=== PATIENT | female | born 1940 | race Caucasian/White ===

== ENCOUNTER 2017-05-19 10:54 | Outpatient (CLI) | payer OTHER | END 2017-05-19 15:37 | disposition home or self-care (01) | LOC: LAB 10:54 | DX: E11.65 Type 2 diabetes mellitus with hyperglycemia (principal); E03.8 Other specified hypothyroidism; E78.2 Mixed hyperlipidemia; D64.89 Other specified anemias ==

== ENCOUNTER 2017-09-15 09:12 | Outpatient (CLI) | payer OTHER | END 2017-09-15 09:26 | disposition home or self-care (01) | LOC: LAB 09:12 | DX: E11.65 Type 2 diabetes mellitus with hyperglycemia (principal); E11.69 Type 2 diabetes mellitus with other specified complication; E66.09 Other obesity due to excess calories; I10 Essential (primary) hypertension; E03.8 Other specified hypothyroidism ==

== ENCOUNTER 2017-11-03 17:45 | Inpatient (IN) | payer OTHER ==
[~2017-11-03] VITALS: Ht 165.1 cm; Wt 97.5 kg
[2017-11-03] MEDS ORDERED: LOSARTAN-HCTZ1 EAC2 (18:16)
[2017-11-03] MEDS ORDERED: FORTAMET500 MG (18:17)
== END 2017-11-10 11:07 | disposition designated cancer center or children's hospital (05) | DRG 371 ==
LOC: ER 17:45 → MEDJ 11-04 15:23 → MEDI 11-04 15:23 → MEDJ 11-04 15:56
PROC: 4A12X4Z Monitoring of Cardiac Electrical Activity, External Approach (ICD-10-PCS; 2017-11-06)
PROC: B246ZZZ Ultrasonography of Right and Left Heart (ICD-10-PCS; principal; 2017-11-08)
DX: A05.8 Other specified bacterial foodborne intoxications (principal); N17.0 Acute kidney failure with tubular necrosis; I45.3 Trifascicular block; I49.5 Sick sinus syndrome; E86.0 Dehydration; I95.89 Other hypotension; E66.8 Other obesity; I10 Essential (primary) hypertension; E11.9 Type 2 diabetes mellitus without complications; R55 Syncope and collapse; E03.8 Other specified hypothyroidism

== ENCOUNTER 2018-01-05 10:35 | Outpatient (CLI) | payer OTHER ==
[~2018-01-05 10:35] MED LIST: FORTAMET500 MG; LOSARTAN-HCTZ1 EAC2
== END 2018-01-05 10:44 | disposition home or self-care (01) ==
LOC: LAB 10:35
DX: M81.0 Age-related osteoporosis without current pathological fracture (principal); E66.09 Other obesity due to excess calories; E11.65 Type 2 diabetes mellitus with hyperglycemia; E78.2 Mixed hyperlipidemia; I10 Essential (primary) hypertension

== ENCOUNTER 2018-03-02 10:50 | Outpatient (CLI) | payer OTHER | END 2018-03-02 11:37 | disposition home or self-care (01) | LOC: LAB 10:50 | DX: E66.09 Other obesity due to excess calories (principal); E78.2 Mixed hyperlipidemia; E11.65 Type 2 diabetes mellitus with hyperglycemia; I10 Essential (primary) hypertension ==

== ENCOUNTER 2018-07-21 10:20 | Outpatient (CLI) | payer OTHER | END 2018-07-21 13:49 | disposition home or self-care (01) | LOC: LAB 10:20 | DX: E03.8 Other specified hypothyroidism (principal); E11.65 Type 2 diabetes mellitus with hyperglycemia; E11.69 Type 2 diabetes mellitus with other specified complication; E78.2 Mixed hyperlipidemia ==

== ENCOUNTER → 2019-02-28 10:58 | Outpatient (CLI) | payer OTHER | END | disposition home or self-care (01) | LOC: LAB 10:58 | DX: I11.9 Hypertensive heart disease without heart failure (principal); E78.00 Pure hypercholesterolemia, unspecified; E11.9 Type 2 diabetes mellitus without complications; E55.9 Vitamin D deficiency, unspecified ==

== ENCOUNTER → 2019-06-21 08:48 | Outpatient (CLI) | payer OTHER | END | disposition home or self-care (01) | LOC: LAB 08:48 | DX: E04.2 Nontoxic multinodular goiter (principal); E03.8 Other specified hypothyroidism; E11.65 Type 2 diabetes mellitus with hyperglycemia; I10 Essential (primary) hypertension; E66.09 Other obesity due to excess calories ==

== ENCOUNTER 2019-12-06 09:24 | Outpatient (CLI) | payer OTHER | END 2019-12-06 09:30 | disposition home or self-care (01) | LOC: LAB 09:24 | DX: E03.8 Other specified hypothyroidism (principal); E11.65 Type 2 diabetes mellitus with hyperglycemia; E66.09 Other obesity due to excess calories; I10 Essential (primary) hypertension; E78.2 Mixed hyperlipidemia ==

== ENCOUNTER 2020-05-06 10:13 | Outpatient (CLI) | payer OTHER | END 2020-05-06 10:15 | disposition home or self-care (01) | LOC: LAB 10:13 | PROVIDERS: ATTEND Internal Medicine Endocrinology, Diabetes & Metabolism | DX: E78.2 Mixed hyperlipidemia (principal); I10 Essential (primary) hypertension; E66.09 Other obesity due to excess calories; E11.65 Type 2 diabetes mellitus with hyperglycemia; E03.8 Other specified hypothyroidism ==

== ENCOUNTER 2020-09-28 09:17 | Outpatient (CLI) | payer OTHER | END 2020-09-28 09:22 | disposition home or self-care (01) | LOC: LAB 09:17 | PROVIDERS: ATTEND Internal Medicine Cardiovascular Disease | DX: E03.8 Other specified hypothyroidism (principal); I11.9 Hypertensive heart disease without heart failure; E11.9 Type 2 diabetes mellitus without complications; E78.2 Mixed hyperlipidemia ==

== ENCOUNTER 2021-01-17 09:41 | Outpatient (CLI) | payer OTHER | END 2021-01-17 09:43 | disposition home or self-care (01) | LOC: LAB 09:41 | PROVIDERS: ATTEND Internal Medicine Endocrinology, Diabetes & Metabolism | DX: M85.89 Other specified disorders of bone density and structure, multiple sites (principal); E66.09 Other obesity due to excess calories; R94.30 Abnormal result of cardiovascular function study, unspecified; E78.2 Mixed hyperlipidemia; E11.65 Type 2 diabetes mellitus with hyperglycemia ==

== ENCOUNTER 2021-06-30 10:26 | Outpatient (CLI) | payer OTHER | END 2021-06-30 10:30 | disposition home or self-care (01) | LOC: LAB 10:26 | PROVIDERS: ATTEND Internal Medicine Endocrinology, Diabetes & Metabolism | DX: D64.89 Other specified anemias (principal); E03.8 Other specified hypothyroidism; E78.2 Mixed hyperlipidemia; E11.65 Type 2 diabetes mellitus with hyperglycemia; R80.9 Proteinuria, unspecified; E11.22 Type 2 diabetes mellitus with diabetic chronic kidney disease; R94.5 Abnormal results of liver function studies ==

== ENCOUNTER 2022-06-02 09:25 | Outpatient (CLI) | payer OTHER | END 2022-06-02 09:36 | disposition home or self-care (01) | LOC: LAB 09:25 | PROVIDERS: ATTEND Internal Medicine Endocrinology, Diabetes & Metabolism | DX: E03.8 Other specified hypothyroidism (principal); E78.2 Mixed hyperlipidemia; E55.9 Vitamin D deficiency, unspecified; E11.65 Type 2 diabetes mellitus with hyperglycemia ==

== ENCOUNTER → 2022-11-17 09:44 | Outpatient (CLI) | payer OTHER ==
[2022-11-17 10:25] LABS: HEMATOCRIT 33.8 % (36.0-45.00); HEMOGLOBIN 11.1 g/dL (12.0-15.00); MEAN CORPUSCULAR HEMOGLOBIN 28.9 pg (27.00-32.0); MEAN CORPUSCULAR HGB CONC 32.8 g/dl (32.0-36.0); PLATELET COUNT 316 K/uL (150-450); RED BLOOD COUNT 3.84 M/uL (4.00-6.00); RED CELL DISTRIBUTION WIDTH 14.4 % (11.5-14.5)
[2022-11-17 11:06] LABS: ALBUMIN 3.3 gm/dL (3.4-5.0); BILIRUBIN TOTAL 0.47 mg/dL (0.3-1.2); CALCIUM 8.9 mg/dL (8.5-10.1); CREATININE SERUM 1.04 mg/dL (0.55-1.02); FREE TRIODOTIRONINE 1.92 pg/ml (2.18-3.98); GFR 51.12; GLOBULINA 3.4 G/DL (2.4-3.5); MAGNESIUM 1.6 mg/dL (1.8-2.4); PHOSPHOROUS 3.3 mg/dL (2.5-4.9); POTASSIUM 3.88 mEq/L (3.5-5.1); TOTAL PROTEIN 6.7 gm/dL (6.4-8.2); TSH 1.32 uIU/mL (0.358-3.74)
[2022-11-17 11:07] LABS: T4 FREE 1.57 NG/ML (0.76-1.46)
[2022-11-17 11:21] LABS: URINE APPEARANCE Cloudy; URINE BILIRRUBIN Negative (NEGATIVE); URINE BLOOD NHT; URINE COLOR Yellow; URINE GLUCOSE Negative (NEGATIVE); URINE LEUKOCYTE Large; URINE NITRATE Negative; URINE PROTEIN Negative (NEGATIVE); URINE UROBILINOGEN 0.2 E.U./dl
[2022-11-17 11:26] LABS: URINE BACTERIA 2432.8 uL (0.0-1933); URINE EPITHELIAL CELLS 66.1 uL (0.0-38.8); URINE WBC 1080.3 uL (0.0-23.2)
[2022-11-17 11:32] LABS: FOLIC ACID > 20.00 ng/ml (4.78-20); VITAMIN D3 25 HYDROXY 34.37 ng/ml (30-120)
[2022-11-17 11:47] LABS: URINE RBC 1.8 uL (0.0-20.8)
== END | disposition home or self-care (01) ==
LOC: LAB 09:44
PROVIDERS: ATTEND Specialist
DX: N25.81 Secondary hyperparathyroidism of renal origin (principal); E03.8 Other specified hypothyroidism; E11.69 Type 2 diabetes mellitus with other specified complication; Z13.220 Encounter for screening for lipoid disorders; D64.89 Other specified anemias; N39.9 Disorder of urinary system, unspecified; E11.21 Type 2 diabetes mellitus with diabetic nephropathy; D64.9 Anemia, unspecified; E78.2 Mixed hyperlipidemia; E55.9 Vitamin D deficiency, unspecified; M81.0 Age-related osteoporosis without current pathological fracture; M85.89 Other specified disorders of bone density and structure, multiple sites; E11.65 Type 2 diabetes mellitus with hyperglycemia

== ENCOUNTER → 2023-04-15 09:56 | Outpatient (CLI) | payer OTHER ==
[2023-04-15 10:48] LABS: URINE APPEARANCE Clear; URINE BILIRRUBIN Negative (NEGATIVE); URINE BLOOD Negative; URINE COLOR Yellow; URINE GLUCOSE Negative (NEGATIVE); URINE LEUKOCYTE Small; URINE NITRATE Negative; URINE PROTEIN Negative (NEGATIVE); URINE UROBILINOGEN 0.2 E.U./dl
[2023-04-15 10:50] LABS: URINE BACTERIA 132.2 uL (0.0-1933); URINE EPITHELIAL CELLS 5.8 uL (0.0-38.8); URINE WBC 31.9 uL (0.0-23.2)
[2023-04-15 10:54] LABS: HEMATOCRIT 34.7 % (36.0-45.00); HEMOGLOBIN 11.6 g/dL (12.0-15.00); MEAN CELL VOLUME 88.1 fL (80.00-100.00); MEAN CORPUSCULAR HEMOGLOBIN 29.5 pg (27.00-32.0); MEAN CORPUSCULAR HGB CONC 33.4 g/dl (32.0-36.0); PLATELET COUNT 348 K/uL (150-450); RED BLOOD COUNT 3.94 M/uL (4.00-6.00); RED CELL DISTRIBUTION WIDTH 14.9 % (11.5-14.5)
[2023-04-15 11:04] LABS: URINE RBC 0.8 uL (0.0-20.8)
[2023-04-15 11:20] LABS: TSH 1.41 uIU/mL (0.358-3.74)
[2023-04-15 11:32] LABS: ALBUMIN 3.5 gm/dL (3.4-5.0); BILIRUBIN TOTAL 0.69 mg/dL (0.3-1.2); CALCIUM 9.4 mg/dL (8.5-10.1); CHOL HDL RATIO 1.9 (0-5.0); CREATININE SERUM 0.89 mg/dL (0.55-1.02); FREE TRIODOTIRONINE 2.15 pg/ml (2.18-3.98); GFR 61.02; GLOBULINA 3.6 G/DL (2.4-3.5); POTASSIUM 4.07 mEq/L (3.5-5.1); T4 FREE 1.41 NG/ML (0.76-1.46); TOTAL PROTEIN 7.1 gm/dL (6.4-8.2)
[2023-04-15 11:34] LABS: C-REACTIVE PROTEIN 1.35 MG/DL (0.00-0.29)
== END | disposition home or self-care (01) ==
LOC: LAB 09:56
PROVIDERS: ATTEND Specialist
DX: N39.9 Disorder of urinary system, unspecified (principal); E03.8 Other specified hypothyroidism; N25.81 Secondary hyperparathyroidism of renal origin; R19.5 Other fecal abnormalities; E11.69 Type 2 diabetes mellitus with other specified complication; E11.21 Type 2 diabetes mellitus with diabetic nephropathy; D64.89 Other specified anemias; M00.08 Staphylococcal arthritis, vertebrae; N39.0 Urinary tract infection, site not specified; Z13.220 Encounter for screening for lipoid disorders; I11.9 Hypertensive heart disease without heart failure; E78.2 Mixed hyperlipidemia; E55.9 Vitamin D deficiency, unspecified

== ENCOUNTER 2023-11-05 09:41 | Outpatient (CLI) | payer OTHER ==
[2023-11-05 10:20] LABS: HEMATOCRIT 34.7 % (36.0-45.00); HEMOGLOBIN 11.7 g/dL (12.0-15.00); MEAN CELL VOLUME 88.1 fL (80.00-100.00); MEAN CORPUSCULAR HEMOGLOBIN 29.7 pg (27.00-32.0); MEAN CORPUSCULAR HGB CONC 33.6 g/dl (32.0-36.0); PLATELET COUNT 321 K/uL (150-450); RED BLOOD COUNT 3.93 M/uL (4.00-6.00); RED CELL DISTRIBUTION WIDTH 14.7 % (11.5-14.5)
[2023-11-05 11:07] LABS: CALCIUM 8.9 mg/dL (8.5-10.1); CREATININE SERUM 0.99 mg/dL (0.55-1.02); GFR 53.97; POTASSIUM 3.95 mEq/L (3.5-5.1); T4 FREE 1.39 NG/ML (0.76-1.46); TSH 1.55 uIU/mL (0.358-3.74)
== END 2023-11-05 09:42 | disposition home or self-care (01) ==
LOC: LAB 09:41
PROVIDERS: ATTEND Internal Medicine Endocrinology, Diabetes & Metabolism
DX: E11.65 Type 2 diabetes mellitus with hyperglycemia (principal); E03.8 Other specified hypothyroidism; E78.2 Mixed hyperlipidemia; E55.9 Vitamin D deficiency, unspecified; M81.0 Age-related osteoporosis without current pathological fracture; D64.9 Anemia, unspecified

== ENCOUNTER 2023-11-23 12:42 | Outpatient (CLI) | payer OTHER | END 2023-11-23 12:45 | disposition home or self-care (01) | LOC: NUCLEAR 12:42 | PROVIDERS: ATTEND Internal Medicine Endocrinology, Diabetes & Metabolism | DX: M85.89 Other specified disorders of bone density and structure, multiple sites (principal); Z13.820 Encounter for screening for osteoporosis; M81.0 Age-related osteoporosis without current pathological fracture ==

== ENCOUNTER 2024-04-05 11:06 | Outpatient (CLI) | payer OTHER ==
[2024-04-05 11:58] LABS: URINE APPEARANCE Clear; URINE BILIRRUBIN Negative (NEGATIVE); URINE BLOOD Negative; URINE COLOR Yellow; URINE GLUCOSE Negative (NEGATIVE); URINE KETONE Negative (NEGATIVE); URINE LEUKOCYTE Moderate; URINE NITRATE Negative; URINE PROTEIN Negative (NEGATIVE); URINE UROBILINOGEN 0.2 E.U./dl
[2024-04-05 11:58] LABS: HEMATOCRIT 36.2 % (36.0-45.00); HEMOGLOBIN 11.9 g/dL (12.0-15.00); MEAN CELL VOLUME 88.6 fL (80.00-100.00); MEAN CORPUSCULAR HEMOGLOBIN 29.2 pg (27.00-32.0); PLATELET COUNT 332 K/uL (150-450); RED BLOOD COUNT 4.08 M/uL (4.00-6.00); RED CELL DISTRIBUTION WIDTH 14.4 % (11.5-14.5)
[2024-04-05 12:01] LABS: URINE BACTERIA 92.9 uL (0.0-1933); URINE EPITHELIAL CELLS 18.9 uL (0.0-38.8); URINE RBC 2.6 uL (0.0-20.8); URINE WBC 184.9 uL (0.0-23.2)
[2024-04-05 12:12] LABS: URINE CAST 1.17 uL (0.0-1.40)
[2024-04-05 13:12] LABS: ALBUMIN 3.5 gm/dL (3.4-5.0); BILIRUBIN TOTAL 0.55 mg/dL (0.3-1.2); CREATININE SERUM 0.95 mg/dL (0.55-1.02); GFR 56.46; GLOBULINA 3.7 G/DL (2.4-3.5); POTASSIUM 3.93 mEq/L (3.5-5.1); T4 FREE 1.39 NG/ML (0.76-1.46); TOTAL PROTEIN 7.2 gm/dL (6.4-8.2); TSH 1.32 uIU/mL (0.358-3.74)
[2024-04-05 13:53] LABS: FOLIC ACID > 20.00 ng/ml (4.78-20); VITAMIN D3 25 HYDROXY 42.85 ng/ml (30-120)
== END 2024-04-05 11:08 | disposition home or self-care (01) ==
LOC: LAB 11:06
PROVIDERS: ATTEND Internal Medicine Endocrinology, Diabetes & Metabolism
DX: D64.9 Anemia, unspecified (principal); E03.8 Other specified hypothyroidism; E78.2 Mixed hyperlipidemia; E55.9 Vitamin D deficiency, unspecified; E11.65 Type 2 diabetes mellitus with hyperglycemia; R94.5 Abnormal results of liver function studies; E11.9 Type 2 diabetes mellitus without complications

== ENCOUNTER 2024-08-31 10:44 | Outpatient (CLI) | payer OTHER ==
[2024-08-31 12:03] LABS: URINE APPEARANCE Clear; URINE BILIRRUBIN Negative (NEGATIVE); URINE BLOOD Negative; URINE COLOR Yellow; URINE GLUCOSE Negative (NEGATIVE); URINE KETONE Negative (NEGATIVE); URINE LEUKOCYTE Large; URINE NITRATE Negative; URINE PROTEIN Negative (NEGATIVE); URINE UROBILINOGEN 0.2 E.U./dl
[2024-08-31 12:09] LABS: BASO % 0.8 % (0.1-1.2); EOS # 0.10 (0.04-0.54); EOS % 0.9 % (0.7-7.0); LYMPH # 1.83 (1.18-3.74); LYMPH % 17.3 % (19.3-53.1); MEAN PLATELET VOLUME 10.50 fl (9.4-12.4); MONO # 0.89 (0.24-0.82); MONO % 8.4 % (4.7-12.5); NEUT # 7.63 (1.56-6.13); NEUT % 72.3 % (34.0-71.1); RED CELL DISTRIBUTION WIDTH 13.7 % (11.6-14.4)
[2024-08-31 12:09] LABS: URINE BACTERIA 303.5 uL (0.0-1933); URINE EPITHELIAL CELLS 15.3 uL (0.0-38.8); URINE WBC 200.6 uL (0.0-23.2)
[2024-08-31 12:15] LABS: CREATININE URINE RANDOM 51.1 MG/DL (30-125)
[2024-08-31 12:17] LABS: INR 1.03
[2024-08-31 12:42] LABS: URINE CAST 0.29 uL (0.0-1.40); URINE RBC 0.7 uL (0.0-20.8)
[2024-08-31 13:35] LABS: ALT/SGPT 16.0 U/L (12-78); AST/SGOT 15.0 U/L (15-37); BILIRUBIN TOTAL 0.61 mg/dL (0.3-1.2); BUN CREA RATIO 23.0 (7.0-25.0); CHOL HDL RATIO 1.8 (0-5.0); CREATININE SERUM 1.09 mg/dL (0.55-1.02); FREE TRIODOTIRONINE 1.85 pg/ml (2.18-3.98); GFR 48.17; GLOBULINA 3.5 G/DL (2.4-3.5); GLUCOSE FASTING 93.0 mg/dL (65-100); HDL 81.0 mg/dl (40-60); LDL 48.0 mg/dl (0-130); OSMOLALITY SERUM 283.0 MOSM/KG (275-295); TSH 0.925 uIU/mL (0.358-3.74); VLDL 18.0 (0-39)
[2024-08-31 13:50] LABS: T4 FREE 1.47 NG/ML (0.76-1.46)
== END 2024-08-31 10:56 | disposition home or self-care (01) ==
LOC: LAB 10:44
PROVIDERS: ATTEND Specialist
DX: E03.9 Hypothyroidism, unspecified (principal); E11.21 Type 2 diabetes mellitus with diabetic nephropathy; N39.9 Disorder of urinary system, unspecified; E78.2 Mixed hyperlipidemia; E11.65 Type 2 diabetes mellitus with hyperglycemia; D64.9 Anemia, unspecified; J45.998 Other asthma; D68.8 Other specified coagulation defects

== ENCOUNTER → 2024-09-14 | Emergency (ER) | payer OTHER ==
[~2024-09-14] VITALS: Ht 162.6 cm; Wt 97.1 kg
[~2024-09-14] MED LIST changes: +0.9 % SODIUM CHLORIDE 1,000 ML IV SCH; +CEFTRIAXONE SODIUM 1,000 MG VIAL IV ONE; +CEFTRIAXONE SODIUM 1,000 MG VIAL ONE; +ELIQUIS5 M1 PO; +INSULIN SYRING1 EA29 SUBCUTANEO
[2024-09-14 13:56] LABS: BASO % 0.9 % (0.1-1.2); EOS # 0.09 (0.04-0.54); EOS % 0.7 % (0.7-7.0); LYMPH # 2.38 (1.18-3.74); LYMPH % 18.7 % (19.3-53.1); MEAN PLATELET VOLUME 9.70 fl (9.4-12.4); MONO # 0.93 (0.24-0.82); MONO % 7.3 % (4.7-12.5); NEUT # 8.87 (1.56-6.13); NEUT % 69.9 % (34.0-71.1); RED CELL DISTRIBUTION WIDTH 13.2 % (11.6-14.4)
[2024-09-14 14:26] LABS: ALT/SGPT 16.0 U/L (12-78); AST/SGOT 14.0 U/L (15-37); BILIRUBIN TOTAL 0.4 mg/dL (0.3-1.2); BUN CREA RATIO 28.0 (7.0-25.0); CREATININE SERUM 1.44 mg/dL (0.55-1.02); GFR 34.94; GLOBULINA 4.3 G/DL (2.4-3.5); GLUCOSE FASTING 186.0 mg/dL (65-100); OSMOLALITY SERUM 293.0 MOSM/KG (275-295)
== END | disposition left against medical advice (07) ==
LOC: ER 12:08
PROVIDERS: Emergency Medicine
DX: L02.31 Cutaneous abscess of buttock (principal); I10 Essential (primary) hypertension; E11.9 Type 2 diabetes mellitus without complications; Z79.84 Long term (current) use of oral hypoglycemic drugs
CPT/HCPCS: 36415; 96365; 99282; J7030

== ENCOUNTER → 2024-12-04 10:36 | Outpatient (CLI) | payer OTHER ==
[~2024-12-04 10:36] MED LIST changes: -0.9 % SODIUM CHLORIDE 1,000 ML IV SCH; -CEFTRIAXONE SODIUM 1,000 MG VIAL IV ONE; -CEFTRIAXONE SODIUM 1,000 MG VIAL ONE
[2024-12-04 11:41] LABS: BASO % 1.3 % (0.1-1.2); EOS # 0.08 (0.04-0.54); EOS % 0.9 % (0.7-7.0); LYMPH # 2.07 (1.18-3.74); LYMPH % 23.7 % (19.3-53.1); MEAN PLATELET VOLUME 10.50 fl (9.4-12.4); MONO # 0.74 (0.24-0.82); MONO % 8.5 % (4.7-12.5); NEUT # 5.71 (1.56-6.13); NEUT % 65.1 % (34.0-71.1); RED CELL DISTRIBUTION WIDTH 14.4 % (11.6-14.4)
[2024-12-04 11:46] LABS: URINE APPEARANCE Clear; URINE BILIRRUBIN Negative (NEGATIVE); URINE BLOOD Negative; URINE COLOR Yellow; URINE GLUCOSE Negative (NEGATIVE); URINE KETONE Negative (NEGATIVE); URINE LEUKOCYTE Small; URINE NITRATE Negative; URINE PROTEIN Negative (NEGATIVE); URINE UROBILINOGEN 0.2 E.U./dl
[2024-12-04 11:50] LABS: URINE BACTERIA 89.9 uL (0.0-1933); URINE CAST 1.61 uL (0.0-1.40); URINE EPITHELIAL CELLS 16.9 uL (0.0-38.8); URINE WBC 43.8 uL (0.0-23.2)
[2024-12-04 11:53] LABS: URINE RBC 1.9 uL (0.0-20.8)
[2024-12-04 12:32] LABS: ALT/SGPT 13.0 U/L (12-78); AST/SGOT 15.0 U/L (15-37); BILIRUBIN TOTAL 0.56 mg/dL (0.3-1.2); BUN CREA RATIO 30.0 (7.0-25.0); CHOL HDL RATIO 1.9 (0-5.0); CREATININE SERUM 1.02 mg/dL (0.55-1.02); GFR 52.01; GLOBULINA 3.2 G/DL (2.4-3.5); GLUCOSE FASTING 97.0 mg/dL (65-100); HDL 88.0 mg/dl (40-60); LDL 69.0 mg/dl (0-130); OSMOLALITY SERUM 288.0 MOSM/KG (275-295); TSH 1.07 uIU/mL (0.358-3.74); VLDL 14.0 (0-39)
[2024-12-04 12:34] LABS: T4 FREE 1.52 NG/ML (0.76-1.46)
== END | disposition home or self-care (01) ==
LOC: LAB 10:36
DX: E03.8 Other specified hypothyroidism (principal); E78.2 Mixed hyperlipidemia; E55.9 Vitamin D deficiency, unspecified; E11.65 Type 2 diabetes mellitus with hyperglycemia; D64.89 Other specified anemias; R94.5 Abnormal results of liver function studies